=== PATIENT | female | born 1970 | race Caucasian/White ===

== ENCOUNTER 2022-06-07 06:56 | Day surgery (SDC) | payer BC, SELFPAY ==
--- NOTE | 2022-06-07 | CRLHL7_ITS ---
For Patients: As a result of the Cures Act, medical imaging exams and procedure reports are released immediately into your electronic medical record. You may view this report before your referring provider. If you have questions, please contact your health care provider. PLEASE SEE ULTRASOUND-GUIDED LEFT BREAST WIRE LOCALIZATION PERFORMED SAME DAY CRL:edward leon/Dictated by: Enzo Erazo MD @ 06/07/2022 12:27:00 PM (Electronically Signed)
--- NOTE | 2022-06-07 07:10 | SUR.PREOP ---
Patient provided home covid negative results to RN.
[2022-06-07 07:21] VITALS: BMI 31.1
[2022-06-07 07:42] VITALS: BP 142/100; PULSE 89; RESP 16; TEMP 36.9; O2SAT 95
[2022-06-07] MEDS: LACTATED RINGERS 1000 ML 1,000 ML 100 ML IV (07:42)
[2022-06-07] MEDS: SODIUM CHLORIDE 0.9 % (FLUSH) 10 ML SYRINGE IVF (07:42)
--- NOTE | 2022-06-07 08:15 | CRLHL7_ITS ---
For Patients: As a result of the Century Cures Act, medical imaging exams and procedure reports are released immediately into your electronic medical record. You may view this report before your referring provider. If you have questions, please contact your health care provider. BREAST WIRE LOCALIZATION USING ULTRASOUND GUIDANCE CLINICAL HISTORY: Enlarging fibroadenoma. LATERALITY: LEFT breast 10 o`clock 2 cm from the nipple. LESION: Hypoechoic circumscribed biopsy-proven fibroadenoma measuring 1.4 x 1.6 x 2.4 cm. LOCALIZATION WIRE: [place] hookwire. TECHNIQUE: The localization wire was placed using real-time ultrasound guidance with image documentation. Cranial-caudal and medial-lateral digital mammograms were obtained after localization wire placement. CONSENT and TIME OUT: The procedure, risks, and alternatives were explained to the patient and a consent was signed. [place] Protocol was followed including pre-procedure verification that relevant information/documentation was available, reviewed and properly matched to the patient; consent accurate and complete; and equipment and supplies available. Time Out was conducted just prior to starting procedure to verify the four required elements: patient identity, correct side/site marked (if applicable), procedure, relevant images/results properly labeled and displayed (if applicable). PROCEDURE: The skin was prepped with ChloraPrep and 8 cc of 1% lidocaine was injected for local anesthesia. The localization wire was placed within or near the targeted breast lesion using ultrasound guidance. The patient tolerated the procedure well. PROXIMITY OF WIRE TO LESION: Within the lesion. IMPRESSION: Successful breast wire localization. ACR not applicable Dictated by Enzo Erazo MD @ 06/07/2022 12:27:47 PM jj/Dictated by: Enzo Erazo MD @ 06/07/2022 12:27:00 PM (Electronically Signed)
--- NOTE | 2022-06-07 08:39 | W.ANESCHARGE ---
Anesthesia Charges Start Date/Time Anesthesia Start Date: 06/07/22 Anesthesia Start Time: 09:17 Stop Date/Time Anesthesia Stop Date: 06/07/22 Anesthesia Stop Time: 10:35
--- NOTE | 2022-06-07 09:15 | CRLHL7_ITS ---
For Patients: As a result of the Cures Act, medical imaging exams and procedure reports are released immediately into your electronic medical record. You may view this report before your referring provider. If you have questions, please contact your health care provider. LEFT BREAST SPECIMEN RADIOGRAPH CLINICAL HISTORY: Enlarging fibroadenoma. COMPARISON: 06/07/2022. FINDINGS: Two specimen film submitted. The specimen contains the fibroadenoma, biopsy clip and localization wire. IMPRESSION: Specimen contains the fibroadenoma, biopsy clip and localization wire. ACR not applicable Dictated by Enzo Erazo MD @ 06/07/2022 12:28:49 PM jj/Dictated by: Enzo Erazo MD @ 06/07/2022 12:28:00 PM (Electronically Signed)
[2022-06-07] MEDS: BUPIVACAINE 0.25% 30 ML INJECTION (09:50)
--- NOTE | 2022-06-07 09:53 | W.ANESCHARGE ---
Anesthesia Charges Start Date/Time Anesthesia Start Date: 06/07/22 Anesthesia Start Time: 09:17 Stop Date/Time Anesthesia Stop Date: 06/07/22 Anesthesia Stop Time: 10:35
[2022-06-07] MEDS: LIDOCAINE 1 % PF 30 ML INJECTION (10:21)
[2022-06-07 10:33] VITALS: BP 138/92; PULSE 73; RESP 16; TEMP 36.6; O2SAT 99
--- NOTE | 2022-06-07 10:36 | PM.GSPRC ---
Operative Note Date of procedure: 06/07/22 Pre-op diagnosis: Fibroadenoma, left breast Post-op diagnosis: Same Type of Procedure: Wire localization of left breast mass Indications: Patient is a 52-year-old female who presented to clinic with an enlarging mass of the left breast. A biopsy was performed, with characteristics consistent with fibroadenoma. Given the patient's age, as well as enlargement of the mass risks and benefits of excision in the operating room were discussed at length. Risks included but was not limited to: Bleeding, infection, risk of damage to surrounding structures, possible need for additional procedures,and postoperative complications such as pneumonia, pulmonary emboli or WI. All questions and concerns were addressed with the patient agreeing to proceed. Procedure Description: After discussing the risks and benefits of the procedure, the patient signed informed consent.? The operative site was marked and the patient was brought to the operating room and placed on the operating table in supine position.? Care was taken to pad the patient's pressure points.?? The patient was then given sedation by anesthesia.?? The operative site was then prepped and draped in the usual sterile fashion.? A time-out was then performed. Prior to arrival in the operating room, the patient was taken to radiology where a wire was placed to localize the previously placed clip. The patient was then brought to the operating room where anesthesia was induced. Timeout was confirmed. Local anesthesia was infiltrated into a curvilinear incision in the 10:00 o clock position at the location of the tip of the wire. Using electrocautery, the segment of breast tissue containing the tip of the wire was excised. The specimen was painted for orientation. This was then sent for evaluation. Radiology called back and confirmed that the clip, wire and visualized mass were present within the specimen. The wound was irrigated and all irrigant suctioned from the wound. Additional local anesthesia was infiltrated. The wounds were then closed in layers using absorbable suture, and Dermbond was placed over the wounds. An Elbert wrap was applied for compression. The patient was awakened without incident and taken to PACU in stable condition. Sponge, needle and instrument counts were correct x3 at the termination of the case. Findings: Left breast wire localized mass. Anesthesia: MAC and local Surgeon: Samia Canseco MD Estimated blood loss (mL): 10 Additional Specimen Information: Left breast mass Condition: stable Disposition: same day
[2022-06-07 10:45] VITALS: BP 140/82; PULSE 67; RESP 16; O2SAT 99
[2022-06-07 11:00] VITALS: BP 152/93; PULSE 78; RESP 16; O2SAT 100
[2022-06-07 11:15] VITALS: BP 161/96; PULSE 72; RESP 16; O2SAT 100
== END 2022-06-07 11:40 | disposition home or self-care (01) ==
PROVIDERS: PCP Family Medicine; Visit Provider Surgery
PROC: (CPT 19120; principal; 2022-06-07 09:15)
DX: D24.2 Benign neoplasm of left breast (principal)
CPT/HCPCS: 19120; 00400; 19285; 77065; 88307; C1769; G0279; J2001; J2250; J2704; J3010; J3490; J7120

== ENCOUNTER 2024-02-13 20:20 | Emergency (ER) | payer BC, SELFPAY ==
[2024-02-13 20:31] VITALS: BP 180/102; PULSE 102; RESP 20; TEMP 37.2; O2SAT 96; BMI 30.4
--- NOTE | 2024-02-13 20:53 | ED_ITS ---
History of Present Illness General Chief Complaint: Epistaxis/Nosebleed Stated Complaint: bloody nose Time Seen by Provider: 02/13/24 20:48 History of Present Illness HPI Narrative: This 53-year-old female comes in with nose bleed. She was getting her hair colored and bent over into a basin and started bleeding from her nose. She is not on any anticoagulants. She is rather anxious about this bleeding as does not seem to stop. She does not report any lightheadedness or shortness of breath. Related Data Home Medications ?Medication ?Instructions ?Recorded ?Confirmed omega 3-ndl-beb-fish oil 1,000 mg 1 cap PO DAILY 06/05/22 06/05/22 (120 mg-180 mg) capsule (Fish Oil) albuterol 90 mcg/actuation aerosol mcg inhalation 06/07/22 inhaler Previous Rx's ?Medication ?Instructions ?Recorded oxycodone 5 mg tablet 5 mg PO Q6H PRN pain #5 tabs 06/07/22 sennosides 8.6 mg capsule (senna) 8.6 mg PO DAILY PRN constipation 06/07/22 #90 caps Allergies Allergy/AdvReac Type Severity Reaction Status Date / [facility] Allergy Unknown Verified 06/05/22 10:55 Penicillins Allergy Unknown Verified 06/05/22 10:55 Review of Systems Status of ROS: Reports: 10 or more systems reviewed and unremarkable except as noted in History and below Narrative: Constitutional: No fevers, no weight gain or loss. Eyes: No discharge. No vision changes. HENT: No congestion, no sore throat, no ear pain. Nose bleed as described above. Cardiovascular: No chest pain, no palpitations. Respiratory: No shortness of breath, no wheezes, no cough. Gastrointestinal: No abdominal pain, no vomiting, no diarrhea. Genitourinary: No dysuria, no hematuria. Musculoskeletal: Normal range of motion. Skin: No rashes, no pruritis. Neurological: No dizziness, weakness, sensory change, speech change. Endo/Heme/Allergies: No bruising or bleeding. No polydipsia. Pysch: no suicidality, no insomnia. She has anxiety about this nose bleed. All other systems reviewed and are negative. [facility] Medical History (Updated 02/13/24 @ 21:35 by Jonathan Villasenor MD) Acid reflux ?K21.9 - Gastro-esophageal reflux disease without esophagitis (ICD-10) Surgical History (Updated 06/05/22 @ 10:57 by Michelle Lennon RN) Hx of tubal ligation ?Z98.51 - Tubal ligation status (ICD-10) Social History Smoking Status: Former smoker How often do you have a drink containing alcohol: 2-3 times a week How many standard drinks containing alcohol do you have on a typical day: 1 or 2 AUDIT-C Alcohol total score: 3 Non-prescribed substance use: denies use Caffeine: Yes Are you using contraception or practicing any form of control: Yes (tubal and mirena) Exam Narrative: Exam Narrative: Constitutional: Well-developed, well-nourished, no acute distress. HEENT: Normocephalic, atraumatic. Active bleeding from both nostrils apparently. Nasal clamp was applied upon arrival here and she began to have bleeding up through the right nasolacrimal duct into her eye. Neck: Normal range of motion. Nontender. Supple. Heart: Intact distal pulses. Lungs: No chest discomfort. No wheezes, rhonchi, or rales. Abdomen: Nontender. Back: Normal range of motion. Extremities: Normal range of motion. No injury. Skin: Intact. No rash. Warm. No erythema or pallor. Neurologic: No altered sensation. No weakness. Alert and oriented. Psychiatric: No suicidality. No anxiety or depression. No insomnia. Nursing notes and vitals signs are reviewed. Const: Vital Signs, click to edit/add: Vital Signs - 24 hr 02/13/24 20:31 Temperature 98.9 F Pulse Rate [Pulse Oximeter] 102 H Respiratory Rate 20 Blood Pressure [Ri ght Upper Arm] 180/102 H Pulse Oximetry 96 Oxygen Delivery Me thod Room Air Course Vital Signs Vital signs: Initial Vital Signs Temperature 98.9 F 02/13/24 20:31 Temperature Source Temporal Artery Scan 02/13/24 20:31 Pulse Rate 102 H 02/13/24 20:31 Respiratory Rate 20 02/13/24 20:31 Blood Pressure 180/102 H 02/13/24 20:31 Blood Pressure Mean 128 H 02/13/24 20:31 Blood Pressure Position Sitting 02/13/24 20:31 Pulse Oximetry 96 02/13/24 20:31 Oxygen Delivery Method Room Air 02/13/24 20:31 Vital Signs Temperature 98.9 F 02/13/24 20:31 Pulse Rate 102 H 02/13/24 20:31 Respiratory Rate 20 02/13/24 20:31 Blood Pressure 180/102 H 02/13/24 20:31 Pulse Oximetry 96 02/13/24 20:31 Oxygen Delivery Method Room Air 02/13/24 20:31 Temperature 98.9 F 02/13/24 20:31 Pulse Rate 102 H 02/13/24 20:31 Respiratory Rate 20 02/13/24 20:31 Blood Pressure 180/102 H 02/13/24 20:31 Pulse Oximetry 96 02/13/24 20:31 Oxygen Delivery Method Room Air 02/13/24 20:31 Medications Administered Medications: Discontinued Medications Generic Name Dose Route Start Last Admin Trade Name Brenda PRN Reason Stop Dose Admin Lorazepam 1 mg 02/13/24 20:54 02/13/24 20:56 Lorazepam 1 Mg Tablet PO 02/13/24 20:55 1 mg ONCE ONE Administration Oxymetazoline HCl 1 spray 02/13/24 20:52 02/13/24 20:55 Oxymetazoline 0.05% Nasal Yancey NOSTRIL-R 02/13/24 20:53 1 spray ONCE ONE Administration MDM - Epistaxis MDM Narrative Medical decision making narrative: This patient is rather anxious because of nose bleed. It seems that she is bleeding primarily from her right nostril and when the nasal clamp is applied she is now bleeding up through the right nasolacrimal duct. I had her receive a dose of Afrin administered by the nurse and then I placed a rhino rocket into the right nostril. This seem to cause some immediate results for stopping the blood. The patient also received a mg of Ativan orally as she was rather anxious. I recheck it after about 45 minutes. She is doing much better. She has a very small amount of bleeding up into the right nasolacrimal duct. I did talk about a dual-chamber rhino rocket that could be used but she was not interested in this as it was miserable enough to have the 1st 1 placed. She is okay to be discharged home. I did give instructions regarding when to return if worsening and recommended that she have the rhino rocket removed in 2 or 3 days. Discharge Plan Discharge Clinical Impression: Epistaxis Patient Disposition: Home, Self-Care Condition: Improved Additional Instructions: Leave rhino rocket in place and return in 2 or 3 days for removal. Return soon er if worsening symptoms occur. Follow up with MD otherwise as needed. Prescriptions: No Action omega 1-vzi-izu-fish oil [Fish Oil] 1,000 mg (120 mg-180 mg) capsule 1 cap PO DAILY albuterol 90 mcg/actuation aerosol inhalation oxycodone 5 mg tablet 5 mg PO Q6H PRN (Reason: pain) Qty: 5 0RF senna 8.6 mg capsule 8.6 mg PO DAILY PRN (Reason: constipation) Qty: 90 0RF Follow Up/Referrals: Ade Pulido MD [Primary Care Provider] - Stand Alone Forms: [employer] Info Instructions
[2024-02-13] MEDS: OXYMETAZOLINE 0.05% NASAL SPRAY 1 SPRAY NOSTRIL-R (20:55)
[2024-02-13] MEDS: LORazepam 1 MG TABLET PO (20:56)
--- OUTSIDE RECORDS SUMMARY | 2024-02-13 21:41 | XMS_ITS | Clinical Summary ---
Author Organization [facility] Address [place], [place] [address] Care Team Providers Care Textile Conservator Name Role Phone Ade Pulido MD Primary Care Prov ider Allergies Active Allergy Reactions Criticality Noted Date Comments Cefaclor Rash 08/26/2006 Doxycycline Nausea Only 06/01/2022 Penicillins Rash 08/26/2006 Medications Medication Sig Dispensed Refills Start Date End Date Status Uzqeo-8-JTB-EPA-Fish Oil 1,000 mg (120 mg-180 mg) cap Take 1 Capsule (1,000 mg) by mouth. 0 04/03/2021 Active Hospital, Clinic, or Other Facility Administered Medication Ordered Dose Route Frequency Start Date End Date Status levonorgestrel (MIRENA) 20 mcg/24 hours (8 yrs) 52 mg intrauterine device (IUD) 1 DeviceIndications:Encounter for removal and reinsertion of IUD 1 Device IU Q 8 YEARS 09/25/2023 Active Active Problems Problem Noted Date Diagnosed Date Adenomatous colon polyp 05/25/2022 Overview (12/11/2022): Colonoscopy 05/2022 large SSA, repeat in 6 months Colonoscopy 11/2022 hyperplastic polyp, repeat in 3 years Pap smear for cervical cancer screening 03/20/20 22 Overview (03/20/2022): 01/2022 NIL/ HPV negative Plan: Pap/ HPV due 01/2027 Esophageal reflux 08/26/2006 Assessment & Plan (09/20/2011 9:47 AM CDT): Prevacid works well Resolved Problems Problem Noted Date Diagnosed Date Resolved Date Tobacco use disorder 08/26/2006 012 Encounters Date Type Department Care Team Description 12/23/2023 10:05 AM CDT Nurse/Clinic Staff Only [facility] [address] [place] [address] Immunization/Injection 12/23/2023 Travel 12/18/2023 Travel from Last 3 Months Immunizations Name Administration Dates Next Due AMB Influenza, IIV3 (Age >=3 years) Preserve Free (Flu Clinic Only) 01/25/2009 AMB Influenza, IIV3 (Age >=3 years)(Flu Clinic Only) 12/25/2011,01/11/2011 AMB Influenza, IIV4 PF (=>6 mos Flulaval,Fluzone Fluarix)(Flu Clinic Only) 01/09/2019,12/26/2017,12/26/2016, 0 14 COVID-19 VACCINE SPIKEVAX (M ODERNA 50MCG/0.5ML) 12YO+ PFS 12/23/2023,03/19/2023 COVID-19 vaccine (VoltServerBio NTech 30mcg/0.3mL) 12YO+ BIVALENT PF, MDV 01/15/2022 COVID-19 vaccine (Remoov-Bio NTech 30mcg/0.3mL) PF, MDV 03/08/2021 INFLUENZA, IIV3 PF (AGE >= 6 MO) 12/23/2023 Influenza, IIV3 (Age >=3 years) 12/30/2020,01/20,01/05/2010 Influenza, IIV4 12/24/2022,,01/14/2020,12/23/19 16,01/17/2015 Td (Age >=7 Years) 06/27/1998 Tdap 08/06/2019,10/07/2008 Zoster (Shingrix-RZV, recombinant) 09/27/2022, Family History Medical History Relation Name Comments Psychiatric illness Daughter Tyesha anxiety Diabetes Father Unknown Maternal Grandfather Unknown Maternal Grandmother Good Health Mother Cancer-breast Paternal Aunt 1 Cancer-prostate Paternal Aunt 2 Other Paternal Grandfather breathi ng disorder smoker emphesema Good Health Paternal Grandmother Good Health Sister Psychiatric illness Son Thai ADHD Relation Name Status Comments Daughter Tyesha Father Alive Maternal Grandfather Other Maternal Grandmother Other Mother Alive Paternal Aunt 1 Paternal Aunt 2 Paternal Grandfather Paternal Grandmother Alive Sister Son Thai Social History Tobacco Use Types Packs/Day Years Used Date Smoking Tobacco: Former Cigarettes 0.5 24.2 1 987 - 05/28/2010 Smokeless Tobacco: Never Tobacco Cessation:Counseling Given: Not Answered Alcohol Use Standard Drinks/Week Comments Yes 4.2 (1 standard drink = 0.6 oz p ure alcohol) socially PHQ-2 Answer Date Recorded PHQ-2 TOTAL SCORE 0 02/08/2022 Social Connections Answer Date Recorded Do you often feel lonely or isolated from those around you? 0 09/23/2023 Financial Resource Strain Answer Date R ecorded Difficulty of Paying Living Expenses 3 09/23/2023 Difficulty of Paying Living Expenses Not on file 09/23/2023 Food Insecurity Answer Date Recorded Do you worry your food will run out before you are able to buy more? 1 09/23/2023 Transportation Needs Answer Date Record ed Does lack of transportation keep you from medica l appointments? 1 09/23/2023 Does lack of transportation keep you from work, meetings or getting things that you need? 1 09/23/2023 Housing Stability Answer Date Recorded What is your housing situation today? 1 09/23/2023 Sex and Gender Information Value Date Recorded Sex Assigned at Not on file Gender Identity Not on file Sexual Orientation Not on file Obstetrics History Para Term AB IAB SAB Ectopic Multiple Livin g Live Births 2 2 2 2 Date Outcome GA Total Labor Labor/2nd/3rd Weight Sex Type Anes PTL Carmenza A1 A5 Name Clin Term Term Last Filed Vital Signs Vital Sign Reading Time Taken Comments Blood Pressure 157/93 10/15/2023 3:40 PM CDT Pulse 75 10/15/2023 3:40 PM CDT Temperature 37.1 C (98.7 F) 07/04/2021 8:45 AM CDT Respiratory Rate 16 12/07/2022 11:40 AM CDT Oxygen Saturation 99% 10/15/2023 3:20 PM CDT Inhaled Oxygen Concentration - - Weight 95.7 kg (211 lb) 10/15/2023 3:20 PM CDT Height 170.2 cm (5' 7) 02/08/2022 3:46 PM INVENTORY ACCOUNTANT Body Mass Index 33.05 02/08/2022 3:46 PM INVENTORY ACCOUNTANT Plan of Treatment Health Maintenance Due Date Last Done Comments HIV for age 15-65 1987 BMI (ht and wt on same day) for age 18+ 02/08/2023 02/08/2022, 10/02/2018, 03/11/2017, Additional history exists Depression screening for age 12+ 02/09/2023 02/09/2022, 02/08/2022, 03/31/2020, Additional history exists Mammogram for age 45-75 06/11/2024 06/12/19, 06/07/2022, 06/07/2022, Additional history exists Colonoscopy through age 75 12/07/202512/07, 12/07/2022, 05/23/2022, Additional history exists Lipids for age 45-75 02/08/2027 02/08/2022, 04/19/2015, 11/11/2013, Additional history exists Pap test for age 21-65 02/08/2027 , 02/08/2022, 10/02/2018, Additional history exists Tetanus booster 08/05/2029 08/06/2019, 09/22, 06/27/1998 Tdap Completed 08/06/2019, 10/07/2008 Hepatitis C screening for age 18-79 Completed 02/08/2022 Zoster (shingles) series for age 50+ Completed 09/27/2022, 06/20/2022 COVID-19 vaccine series Completed 12/23/19, 03/19/2023, 01/15/2022, Additional history exists Influenza for age 50-64 Completed 12/23/19, 12/24/2022, 01/15/2022, Additional history exists Pneumococcal series for age 6-64 Aged Out No longer eligible based on patient's age to complete this topic Procedures Procedure Name Priority Date/Time Associated Diagnosis Comments XR MAMMO FRANNY BILAT SCREEN Routine 06/12/2023 4:14 PM CDT Encounter for screening mammogram for malignant neoplasm of breast COLONOSCOPY 12/07/2022 9:55 AM CDT ANTI HCV Routine 02/08/2022 4:47 PM INVENTORY ACCOUNTANT Encounter for hepatitis C screening test for low risk patient LIPID PANEL Routine 02/08/2022 4:47 PM INVENTORY ACCOUNTANT Screening for lipoid disorders HPV HIGH RISK Routine 02/08/2022 4:30 PM INVENTORY ACCOUNTANT Pap smear for cervical cancer screening from Last 3 Months or Most Recently Relevant to Health Maintenance Results * XR MAMMO FRANNY BILAT SCREEN (06/12/2023 4:14 PM CDT) Anatomical Region Laterality Modality BREASTS, Breast Left, Breast Right Bilateral Mammography Impressions 06/13/2023 1:45 PM CDT There is no radiographic evidence for malignancy. Recommend annual mammograms. MAMMOGRAM ASSESSMENT: ACR 1 Negative PATIENTS: You will also receive a letter with your examination results in an easy to read format. If you have questions about your results, please contact your referring provider. Narrative 06/13/2023 1:45 PM CDT For Patients: As a result of the Century Cures Act, medical imaging exams and procedure reports are released immediately into your electronic medical record. You may view this report before your referring provider. If you have questions, please contact your health care provider. XR MAMMO FRANNY BILAT SCREEN [[id number]] CLINICAL HISTORY: This is an asymptomatic 53 y.o. patient. INDICATION FOR EXAM: Mammogram Screening. TECHNIQUE: CC & MLO views were obtained. This study was evaluated with the assistance of Computer-Aided Detection. Breast Tomosynthesis was used in interpretation. COMPARISON FILM: Yes 03/13/22 [facility] 02/06/21 [facility] FINDINGS: The breasts are heterogeneously dense, which may obscure small masses. There are no dominant masses, suspicious micro calcifications or areas of architectural distortion. Ade Pulido MD MAMMO * COLONOSCOPY (12/07/2022 9:55 AM CDT) 12/07/2022 9:55 AM CDT Narrative Transcriptions Mor Celis MD - 12/07/2022 11:31 AM CDT Patient Name: Ying Driver Procedure Date: 12/07/2022 Gender: Female Date of : 1970 Admit Type: Outpatient Procedure: Colonoscopy Proceduralist: Mor Celis MD , Tigist David (Nurse), Aniya Samayoa (Nurse) Indications/Pre-Op Diagnosis: High risk colon cancer surveillance:Personal history of sessile serrated colon polyp (10mm or greater in size), Last colonoscopy: May 2022 Medications: Fentanyl 200 micrograms IV, Midazolam 4 mgIV, The level of sedation administered wasmoderate Procedure Description: The patient had risks, benefits and alternatives explained to andgave informed consent. The patient had a stable cardiopulmonary status and judged an adequate candidate for conscious sedation. The endoscope [id number] was passed through the anus andadvanced to the cecum, identified by appendiceal orifice and ileocecal valve.The colonoscopy was performed without difficulty. The patient toleratedthe procedure well. The quality of the bowel preparation was good. The ileocecal valve, appendiceal orifice, and rectum were photographed. Estimated Blood Loss & Specimen: Estimated blood loss: none. Specimen collected - Yes and sent to Laboratory Findings: The perianal and digital rectal examinations were normal. A medium post polypectomy scar was found at the appendiceal orifice. There was residual polyp tissue. The polyp was removed with a cold snare. Resection and retrieval were complete. A 3 mm polyp was found in the rectum. The polyp was sessile. Thepolyp was removed with a cold snare. Area fulfated with soft coagutaltionand snare tip. Resection and retrieval were complete. The colon (entire examined portion) was moderately redundant. The exam was otherwise without abnormality. Impressions/Post-Op Diagnosis: - Post-polypectomy scar at the appendiceal orifice. - One 3 mm polyp in the rectum, removed with a cold snare. Resectedand retrieved. - Redundant colon. - The examination was otherwise normal. Recommendation: - Patient has a contact number available for emergencies. The signsand symptoms of potential delayed complications were discussed with the patient. Return to normal activities tomorrow. Written discharge instructions were provided to the patient. - Resume previous diet. - Continue present medications. - Await pathology results. - Repeat colonoscopy is recommended (possible 1-2 years). The colonoscopy date will be determined after pathology results fromtoday's exam become available for review. Moderate Sedation: A time out was performed before the procedure. Moderate (conscious) sedation was administered by the endoscopy nurse and supervised bythe endoscopist. The following parameters were monitored: oxygensaturation, heart rate, blood pressure, EKG, CO2, respiratory rate, adequacy of pulmonary ventilation and reponse to care. Please refer to the patient's medical record flowsheets and nursing notes for moderate sedation details. Total physician intraservice time was 37 minutes. Mor Celis MD 12/07/2022 11:31:18 AM This report has been signed electronically. 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 All rights reserved. The codes documented in this report are preliminary and upon call center trainer reviewmay be revised to meet current compliance requirements. Scope In: 10:45:33 AM Scope Withdrawal Time 0 hours 13 minutes 30 seconds Scope Out: 11:19:54 AM Mor Celis MD PROCEDURE ORD * ANTI HCV (02/08/2022 4:47 PM INVENTORY ACCOUNTANT) HEPATITIS C ANTIBODY Non-React vandana Non-React vandana 02/10/2022 11:49 PM INVENTORY ACCOUNTANT [facility] Comment:Antibodies to HCV no t detected; does not exclude the possibility of exposure to HCV. Blood BLOOD SPECIMEN / Unknown Venipuncture / Unknown 02/08/2022 4:47 PM INVENTORY ACCOUNTANT 02/08/2022 4:49 PM INVENTORY ACCOUNTANT Ade Pulido MD SEND OUTS [facility] [address] [place] [address], * (ABNORMAL) LIPID PANEL (02/08/2022 4:47 PM INVENTORY ACCOUNTANT) CHOLESTEROL,TOTAL 248(H) 100 - 199 mg/dL 02/10/2022 11:32 PM INVENTORY ACCOUNTANT [facility] TRIGLYCERIDES 157(H) <150 mg/dL 02/10/2022 11:32 PM INVENTORY ACCOUNTANT [facility] HDL CHOLESTEROL 45 >40 mg/dL 11:32 PM INVENTORY ACCOUNTANT [facility] NON-HDL CHOLESTEROL 203(H) <145 mg/dl 02/10/2022 11:32 PM INVENTORY ACCOUNTANT [facility] CHOL/HDL RATIO 5.51(H) <4.50 02/10/2022 11:32 PM INVENTORY ACCOUNTANT [facility] LDL CHOLESTEROL 172(H) <=130 mg/dL 02/10/2022 11:32 PM INVENTORY ACCOUNTANT [facility] VLDL CHOLESTEROL 31(H) <=30 mg/dL 02/10/2022 11:32 PM INVENTORY ACCOUNTANT [facility] PROVIDER ORDERED STATUS RANDOM 02/10/2022 11:32 PM INVENTORY ACCOUNTANT [facility] Blood BLOOD SPECIMEN / Unknown Venipuncture / Unknown 02/08/2022 4:47 PM INVENTORY ACCOUNTANT 02/08/2022 4:49 PM INVENTORY ACCOUNTANT Ade Pulido MD CHEMISTRY [facility] [address] [place] [address], * HPV HIGH RISK (02/08/2022 4:30 PM INVENTORY ACCOUNTANT) TYPE 16 Negative Negative 02/16/2022 4:48 PM INVENTORY ACCOUNTANT [facility] TYPE 18 Negative Negative 02/16/2022 4:48 PM INVENTORY ACCOUNTANT [facility] OTHER HIGH RISK TYPES Negative Negative 02/16/2022 4:48 PM INVENTORY ACCOUNTANT [facility] Other (Cervical/Vagina l) Non-Blood / Unknown 02/08/2022 4:30 PM INVENTORY ACCOUNTANT 02/12/2022 1:36 PM INVENTORY ACCOUNTANT Narrative [facility] - 02/16/2022 4:48 PM INVENTORY ACCOUNTANT HPV types 16, 18, 31, 33, 35, 39, 45, 51, 52, 56, 58, 59, 66 and 68 DNA were undetectable or below the pre-set threshold. Methodology: Noemy Jonathan 4800 HPV Test Ade Pulido MD MICROBIOLO GY [facility] [address] [place] [address], from Last 3 Months or Most Recently Relevant to Health Maintenance Care Teams Textile Conservator Relationship Specialty Start Date End Date Ade Pulido MD [address] [place] [address] PCP - General 03/28/06
[2024-02-13 21:42] VITALS: BP 143/90; PULSE 80; RESP 18; TEMP 36.7
== END 2024-02-13 21:46 | disposition home or self-care (01) ==
LOC: ED 21:39
PROVIDERS: Emergency Provider Emergency Medicine Emergency Medical Services; PCP Family Medicine
DX: R04.0 Epistaxis (principal)
CPT/HCPCS: 30901; 99283; 99284; A9270

== ENCOUNTER 2024-02-15 08:33 | Emergency (ER) | payer BC, SELFPAY ==
[2024-02-15 08:41] VITALS: BP 143/102; PULSE 98; RESP 18; TEMP 36.4; O2SAT 98; BMI 30.4
--- NOTE | 2024-02-15 09:08 | ED_ITS ---
HPI - General Adult General Chief complaint: Ear/Nose/Throat Problem Stated complaint: need rhino rocket removed Time Seen by Provider: 02/15/24 08:57 History of Present Illness HPI narrative: Patient is a 53-year-old woman with no history of clotting disorder or anticoagulation who was seen 2 days ago for epistaxis on the right. She had a pack placed and is in today for pack removal. The bleeding has stopped she still has some drainage down the back her throat which is slightly bloody. No other problems have been noted she has had no nausea no vomiting no fevers no chills no night sweats no cough no shortness of breath. She has chronic dry eyes but no signs of chronic sinusitis or rhinitis. Related Data Home Medications ?Medication ?Instructions ?Recorded ?Confirmed omega 0-qze-lyk-fish oil 1,000 mg 1 cap PO DAILY 06/05/22 06/05/22 (120 mg-180 mg) capsule (Fish Oil) albuterol 90 mcg/actuation aerosol mcg inhalation 06/07/22 inhaler Allergies Allergy/AdvReac Type Severity Reaction Status Date / Time cefaclor (From Ceclor) Allergy Unknown Verified 06/05/22 10:55 Penicillins Allergy Unknown Verified 06/05/22 10:55 Review of Systems Status of ROS: Reports: 10 or more systems reviewed and unremarkable except as noted in History and below PFSH PFS Medical History Acid reflux ?K21.9 - Gastro-esophageal reflux disease without esophagitis (ICD-10) Surgical History Hx of tubal ligation ?Z98.51 - Tubal ligation status (ICD-10) Social History Smoking Status: Former smoker Do you use any of these nicotine containing products: None Second hand tobacco smoke exposure: No How often do you have a drink containing alcohol: monthly or less How many standard drinks containing alcohol do you have on a typical day: 1 or 2 AUDIT-C Alcohol total score: 1 Non-prescribed substance use: denies use Caffeine: Yes Are you using contraception or practicing any form of control: Yes (tubal and mirena) service: No Exam Narrative: Exam Narrative: EXAM GENERAL: Patient appears comfortable and well. EYES: No scleral icterus. ENT: Tympanic membranes and oropharynx normal. Right nostril shows some coagulated blood after packing removed no other findings noted. THYROID: no thyroid nodules or thyromegaly. LYMPH: No supraclavicular or cervical lymphadenopathy. SKIN: Visible skin seen during exam normal or with benign process only. EXT: No dependent lower extremity pedal edema. HEART: Regular rate and rhythm with no murmurs, rubs, or gallops. LUNGS: Clear to auscultation bilaterally with no crackles or wheezes. ABD: Soft, non tender, non distended. PSYCH: Good eye contact, speech is not pressured. Const: Vital Signs, click to edit/add: Vital Signs - 24 hr 02/15/24 08:41 Temperature 97.5 F L Pulse Rate [Pulse Oximeter] 98 Respiratory Rate 18 Blood Pressure [Ri ght Upper Arm] 143/102 H Pulse Oximetry 98 Oxygen Delivery Me thod Room Air Course Course ED Course: Nasal packing removed. Vital Signs Vital signs: Initial Vital Signs Temperature 97.5 F L 02/15/24 08:41 Temperature Source Temporal Artery Scan 02/15/24 08:41 Pulse Rate 98 02/15/24 08:41 Respiratory Rate 18 02/15/24 08:41 Blood Pressure 143/102 H 02/15/24 08:41 Blood Pressure Mean 115 H 02/15/24 08:41 Blood Pressure Position Sitting 02/15/24 08:41 Pulse Oximetry 98 02/15/24 08:41 Oxygen Delivery Method Room Air 02/15/24 08:41 Vital Signs Temperature 97.5 F L 02/15/24 08:41 Pulse Rate 98 02/15/24 08:41 Respiratory Rate 18 02/15/24 08:41 Blood Pressure 143/102 H 02/15/24 08:41 Pulse Oximetry 98 02/15/24 08:41 Oxygen Delivery Method Room Air 02/15/24 08:41 Temperature 97.5 F L 02/15/24 08:41 Pulse Rate 98 02/15/24 08:41 Respiratory Rate 18 02/15/24 08:41 Blood Pressure 143/102 H 02/15/24 08:41 Pulse Oximetry 98 02/15/24 08:41 Oxygen Delivery Method Room Air 02/15/24 08:41 Medical Decision Making MDM Narrative Medical decision making narrative: Patient is a 53-year-old woman who had epistaxis for the 1st time 2 days ago. She is in today for packing removal. After explaining the risks and benefits I did remove the packing successfully. She is observed for a short time no further epistaxis has occurred. I did recommend Flonase as well as follow-up with ear nose and throat. Discharge Plan Discharge Clinical Impression: Epistaxis Patient Disposition: Home, Self-Care Condition: Stable Instructions: Nosebleed (ED) Additional Instructions: Flonase 1 spray each nostril daily Follow-up with ENT in the next several weeks. Activity Level: No Restrictions and Other Discharge Diet: Regular Prescriptions: No Action omega 2-mos-ltp-fish oil [Fish Oil] 1,000 mg (120 mg-180 mg) capsule 1 cap PO DAILY albuterol 90 mcg/actuation aerosol inhalation Follow Up/Referrals: Ade Pulido MD [Primary Care Provider] - Stand Alone Forms: [employer] Info Instructions
--- OUTSIDE RECORDS SUMMARY | 2024-02-15 09:27 | XMS_ITS | Clinical Summary ---
Author Organization [employer] [facility] Address [place], [place] [address] Care Team Providers Care Envelope Folding Machine Operator Name Role Phone Ade Pulido MD Primary Care Prov ider Allergies Active Allergy Reactions Criticality Noted Date Comments Cefaclor Rash 08/26/2006 Doxycycline Nausea Only 06/01/2022 Penicillins Rash 08/26/2006 Medications Medication Sig Dispensed Refills Start Date End Date Status Okxli-3-CJT-EPA-Fish Oil 1,000 mg (120 mg-180 mg) cap [...] 12/23/2023 10:05 AM CDT Nurse/Clinic Staff Only [facility] [address] [place] [address] Immunization/Injection 12/23/2023 Travel 12/18/2023 Travel from Last 3 Months Immunizations Name Administration Dates Next Due AMB Influenza, IIV3 (Age >=3 years) Preserve Free (Flu Clinic Only) 01/25/2009 AMB Influenza, IIV3 (Age >=3 years)(Flu Clinic Only) 12/25/2011,01/11/2011 AMB Influenza, IIV4 PF (=>6 mos Flulaval,Fluzone Fluarix)(Flu Clinic Only) 01/09/2019,12/26/2017,12/26/2016, 0 14 COVID-19 VACCINE SPIKEVAX (M ODERNA 50MCG/0.5ML) 12YO+ PFS 12/23/2023,03/19/2023 COVID-19 vaccine (ZapperBio NTech 30mcg/0.3mL) 12YO+ BIVALENT PF, MDV 01/15/2022 COVID-19 vaccine (Eversnap-Bio NTech 30mcg/0.3mL) PF, MDV 03/08/2021 INFLUENZA, IIV3 [...] 170.2 cm (5' 7) 02/08/2022 3:46 PM TITLE I PARAPROFESSIONAL Body Mass Index 33.05 02/08/2022 3:46 PM TITLE I PARAPROFESSIONAL Plan of Treatment Health Maintenance Due Date [...] CDT ANTI HCV Routine 02/08/2022 4:47 PM TITLE I PARAPROFESSIONAL Encounter for hepatitis C screening test for low risk patient LIPID PANEL Routine 02/08/2022 4:47 PM TITLE I PARAPROFESSIONAL Screening for lipoid disorders HPV HIGH RISK Routine 02/08/2022 4:30 PM TITLE I PARAPROFESSIONAL Pap smear for cervical cancer screening from [...] care provider. XR MAMMO FRANNY BILAT SCREEN [[id number]] CLINICAL HISTORY: This is an asymptomatic 53 [...] adequate candidate for conscious sedation. 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 All rights reserved. The codes documented in this report are preliminary and upon software product specialist reviewmay be revised to meet current compliance requirements. Scope In: 10:45:33 AM Scope Withdrawal Time 0 hours 13 minutes 30 seconds Scope Out: 11:19:54 AM Mor Celis MD PROCEDURE ORD * ANTI HCV (02/08/2022 4:47 PM TITLE I PARAPROFESSIONAL) HEPATITIS C ANTIBODY Non-React vandana Non-React vandana 02/10/2022 11:49 PM TITLE I PARAPROFESSIONAL [facility] Comment:Antibodies to HCV no t detected; does not exclude the possibility of exposure to HCV. Blood BLOOD SPECIMEN / Unknown Venipuncture / Unknown 02/08/2022 4:47 PM TITLE I PARAPROFESSIONAL 02/08/2022 4:49 PM TITLE I PARAPROFESSIONAL Ade Pulido MD SEND OUTS [facility] [address] [place] [address], * (ABNORMAL) LIPID PANEL (02/08/2022 4:47 PM TITLE I PARAPROFESSIONAL) CHOLESTEROL,TOTAL 248(H) 100 - 199 mg/dL 02/10/2022 11:32 PM TITLE I PARAPROFESSIONAL [facility] TRIGLYCERIDES 157(H) <150 mg/dL 02/10/2022 11:32 PM TITLE I PARAPROFESSIONAL [facility] HDL CHOLESTEROL 45 >40 mg/dL 11:32 PM TITLE I PARAPROFESSIONAL [facility] NON-HDL CHOLESTEROL 203(H) <145 mg/dl 02/10/2022 11:32 PM TITLE I PARAPROFESSIONAL [facility] CHOL/HDL RATIO 5.51(H) <4.50 02/10/2022 11:32 PM TITLE I PARAPROFESSIONAL [facility] LDL CHOLESTEROL 172(H) <=130 mg/dL 02/10/2022 11:32 PM TITLE I PARAPROFESSIONAL [facility] VLDL CHOLESTEROL 31(H) <=30 mg/dL 02/10/2022 11:32 PM TITLE I PARAPROFESSIONAL [facility] PROVIDER ORDERED STATUS RANDOM 02/10/2022 11:32 PM TITLE I PARAPROFESSIONAL [facility] Blood BLOOD SPECIMEN / Unknown Venipuncture / Unknown 02/08/2022 4:47 PM TITLE I PARAPROFESSIONAL 02/08/2022 4:49 PM TITLE I PARAPROFESSIONAL Ade Pulido MD CHEMISTRY [facility] [address] [place] [address], * HPV HIGH RISK (02/08/2022 4:30 PM TITLE I PARAPROFESSIONAL) TYPE 16 Negative Negative 02/16/2022 4:48 PM TITLE I PARAPROFESSIONAL [facility] TYPE 18 Negative Negative 02/16/2022 4:48 PM TITLE I PARAPROFESSIONAL [facility] OTHER HIGH RISK TYPES Negative Negative 02/16/2022 4:48 PM TITLE I PARAPROFESSIONAL [facility] Other (Cervical/Vagina l) Non-Blood / Unknown 02/08/2022 4:30 PM TITLE I PARAPROFESSIONAL 02/12/2022 1:36 PM TITLE I PARAPROFESSIONAL Narrative [facility] - 02/16/2022 4:48 PM TITLE I PARAPROFESSIONAL HPV types 16, 18, 31, 33, 35, 39, 45, 51, 52, 56, 58, 59, 66 and 68 DNA were undetectable or below the pre-set threshold. Methodology: Noemy Jonathan 4800 HPV Test Ade Pulido MD MICROBIOLO GY [facility] [address] [place] [address], from Last 3 Months or Most Recently Relevant to Health Maintenance Care Teams Envelope Folding Machine Operator Relationship Specialty Start Date End Date Ade Pulido MD [address] [place] [address] PCP - General 03/28/06
== END 2024-02-15 09:27 | disposition home or self-care (01) ==
LOC: ED 09:26
PROVIDERS: Emergency Provider Internal Medicine; PCP Family Medicine
DX: R04.0 Epistaxis (principal)
CPT/HCPCS: 30901; 99283

== ENCOUNTER 2024-02-16 08:43 | Emergency (ER) | payer BC, SELFPAY ==
[2024-02-16 08:47] VITALS: BP 146/94; PULSE 90; RESP 18; TEMP 36.7; O2SAT 96; BMI 30.4
--- NOTE | 2024-02-16 09:04 | ED.EPISTAXIS ---
History of Present Illness General Time Seen by Provider: 08:55 Date Seen: 02/16/24 Chief Complaint: Epistaxis/Nosebleed Stated Complaint: Nose bleed Time Seen by Provider: 02/16/24 08:55 Source: patient, family, RN notes reviewed and old records reviewed Mode of arrival: ambulatory Limitations: no limitations History of Present Illness HPI Narrative: This 53-year-old female is coming in with recurrent right nose bleed. She had an unprovoked nose bleed on February 12, did have a nasal packing put in. She returned yesterday to the ER to have the packing removed. This morning she was just washing her hair again, no trauma, right naris started bleeding again. She put pressure on immediately. She did spit up 1 clot. She had been advised yesterday to start Flonase for moisturization. Did review with her that I did actually not recommend starting Flonase with active issues with nasal bleed. The steroid in this can thin the membranes and increase the risk of nose bleeds. I do agree with the moisturization theory but would avoid the steroid in Flonase. Patient does have baseline dry eyes and states she has humidification going throughout the house. Did recommend a small amount of Vaseline into each anterior nares at bedtime. She is aware that she needs to follow up with ENT and was going to call our clinic on Saturday to get that scheduled. She is not feeling any significant drainage down the back of her throat right now, has been holding steady pressure over her right nostril. She admits that she was quite nervous last time, is feeling anxious now. With the 1st nose bleed she actually got reflux of blood up the nasal lacrimal duct and was coming out her right eye. Location: Yes right nares Related Data Home Medications ?Medication ?Instructions ?Recorded ?Confirmed omega 0-jsr-xwd-fish oil 1,000 mg 1 cap PO DAILY 06/05/22 02/16/24 (120 mg-180 mg) capsule (Fish Oil) Allergies Allergy/AdvReac Type Severity Reaction Status Date / Time cefaclor (From [facility]) Allergy Unknown Verified 02/16/24 08:55 Penicillins Allergy Unknown Verified 02/16/24 08:55 Review of Systems Narrative: As per HPI. PFSH PFS Medical History Acid reflux ?K21.9 - Gastro-esophageal reflux disease without esophagitis (ICD-10) Surgical History Hx of tubal ligation ?Z98.51 - Tubal ligation status (ICD-10) Social History Smoking Status: Former smoker Do you use any of these nicotine containing products: None Second hand tobacco smoke exposure: No How often do you have a drink containing alcohol: monthly or less How many standard drinks containing alcohol do you have on a typical day: 1 or 2 AUDIT-C Alcohol total score: 1 Non-prescribed substance use: denies use Caffeine: Yes Are you using contraception or practicing any form of control: Yes (tubal and mirena) service: No Exam Const: Vital Signs, click to edit/add: Vital Signs - 24 hr 02/16/24 08:47 Temperature 98.1 F Pulse Rate [Pulse Oximeter] 90 Respiratory Rate 18 Blood Pressure [Le ft Upper Arm] 146/94 H Pulse Oximetry 96 Oxygen Delivery Me thod Room Air Ying is a very pleasant 53-year-old female that is alert, interactive, no apparent distress. I have her take the pressure off her right nostril while I am in with her. She dabs just a little bit of blood a couple of times when I am in there. Face is atraumatic, inspection of her nares with the ample thick a adhikari from the head set with the eyeglasses reveals no definite area of bleeding, cannot see any punctate erythematous area along the septum, see no active bleeding. She states the same thing happened with her initial presentation. TMs canals look normal, oropharynx shows a little residual blood down the back of her pharynx but I do not see any active trickling. Documenting provider has reviewed patient's vital signs: yes Course Course ED Course: Patient and I discussed with her further observation without packing verses replacing the packing. She did rebleed at home, is seemingly settled at this time. I have no idea if she will bleed again, she certainly can try to observe, they do live in town. She is quite anxious, they are wondering if we can replace the packing but if she could have a dose of Ativan 1st. This helped her significantly last time, took it orally. I will give her 1 mg oral Ativan and plan to replace packing. Reevaluation(s) Time of Reevaluation #1: 09:49 Reevaluation #1: Patient has had no significant bleeding here, did recheck her oropharynx and it is clear, no evidence of any blood. She is just had a little drip when touching the Kleenex to her nose. She ultimately decided to have the packing replaced. Did use a 5.5 cm rapid rhino. This actually fit in snugly, did not put any air in the chamber at this point. There was no bleeding. Instructed patient and her on how to place air into the chamber should she start bleeding around this. They will do 1 mL at a time up to a total volume of 5 mL. Vital Signs Vital signs: Initial Vital Signs Temperature 98.1 F 02/16/24 08:47 Temperature Source Temporal Artery Scan 02/16/24 08:47 Pulse Rate 90 02/16/24 08:47 Respiratory Rate 18 02/16/24 08:47 Blood Pressure 146/94 H 02/16/24 08:47 Blood Pressure Mean 111 H 02/16/24 08:47 Blood Pressure Position Sitting 02/16/24 08:47 Pulse Oximetry 96 02/16/24 08:47 Oxygen Delivery Method Room Air 02/16/24 08:47 Vital Signs Temperature 98.1 F 02/16/24 08:47 Pulse Rate 90 02/16/24 08:47 Respiratory Rate 18 02/16/24 08:47 Blood Pressure 146/94 H 02/16/24 08:47 Pulse Oximetry 96 02/16/24 08:47 Oxygen Delivery Method Room Air 02/16/24 08:47 Temperature 98.1 F 02/16/24 08:47 Pulse Rate 90 02/16/24 08:47 Respiratory Rate 18 02/16/24 08:47 Blood Pressure 146/94 H 02/16/24 08:47 Pulse Oximetry 96 02/16/24 08:47 Oxygen Delivery Method Room Air 02/16/24 08:47 Medications Administered Medications: Discontinued Medications Generic Name Dose Route Start Last Admin Trade Name Freq PRN Reason Stop Dose Admin Lorazepam 1 mg 02/16/24 09:04 02/16/24 09:09 Lorazepam 0.5 Mg Tablet PO 02/16/24 09:05 1 mg ONCE ONE Administration Lorazepam 1 mg 02/16/24 09:30 02/16/24 09:17 Lorazepam 1 Mg Tablet PO 02/16/24 09:31 Not Given ONCE ONE Discharge Plan Discharge Clinical Impression: Epistaxis Patient Disposition: Home, Self-Care Condition: Stable Instructions: Nosebleed (ED) Additional Instructions: Leave packing in place, should be removed by Saturday or Saturday. Please call the [facility] to get scheduled with Dr. Ramirez in ENT, please let them know that we need you seen this week to have your packing removed. If you should start bleeding on the right side with the packing in place, can place 1 mL of air into the chamber at a time, wait 3-5 minutes between each placement of air. The chamber can take a total volume of 5 mL. If you continue to bleed after this volume is reached, need to return to the ER. Activity Level: No strenuous activity Prescriptions: No Action omega 5-wgs-mvb-fish oil [Fish Oil] 1,000 mg (120 mg-180 mg) capsule 1 cap PO DAILY Follow Up/Referrals: Ade Pulido MD [Primary Care Provider] - Stand Alone Forms: [employer] Info Instructions
[2024-02-16] MEDS: LORazepam 0.5 MG TABLET 1 MG PO (09:09)
--- OUTSIDE RECORDS SUMMARY | 2024-02-16 09:21 | XMS_ITS | Clinical Summary ---
Author Organization [employer] [facility] Address [place], [place] [address] Care Team Providers Care Staff Counsel Name Role Phone Ade Pulido MD Primary Care Prov ider Allergies Active Allergy Reactions Criticality Noted Date Comments Cefaclor Rash 08/26/2006 Doxycycline Nausea Only 06/01/2022 Penicillins Rash 08/26/2006 Medications Medication Sig Dispensed Refills Start Date End Date Status Qbagl-2-TWG-EPA-Fish Oil 1,000 mg (120 mg-180 mg) cap [...] 12/23/2023 10:05 AM CDT Nurse/Clinic Staff Only [facility] [address] [place] [address] Immunization/Injection 12/23/2023 Travel 12/18/2023 Travel from Last 3 Months Immunizations Name Administration Dates Next Due AMB Influenza, IIV3 (Age >=3 years) Preserve Free (Flu Clinic Only) 01/25/2009 AMB Influenza, IIV3 (Age >=3 years)(Flu Clinic Only) 12/25/2011,01/11/2011 AMB Influenza, IIV4 PF (=>6 mos Flulaval,Fluzone Fluarix)(Flu Clinic Only) 01/09/2019,12/26/2017,12/26/2016, 0 14 COVID-19 VACCINE SPIKEVAX (M ODERNA 50MCG/0.5ML) 12YO+ PFS 12/23/2023,03/19/2023 COVID-19 vaccine (Tie SocietyBio NTech 30mcg/0.3mL) 12YO+ BIVALENT PF, MDV 01/15/2022 COVID-19 vaccine (People[employer]-Bio NTech 30mcg/0.3mL) PF, MDV 03/08/2021 INFLUENZA, IIV3 [...] 170.2 cm (5' 7) 02/08/2022 3:46 PM AGRICULTURE LABORATORY TECHNICIAN Body Mass Index 33.05 02/08/2022 3:46 PM AGRICULTURE LABORATORY TECHNICIAN Plan of Treatment Health Maintenance Due Date [...] CDT ANTI HCV Routine 02/08/2022 4:47 PM AGRICULTURE LABORATORY TECHNICIAN Encounter for hepatitis C screening test for low risk patient LIPID PANEL Routine 02/08/2022 4:47 PM AGRICULTURE LABORATORY TECHNICIAN Screening for lipoid disorders HPV HIGH RISK Routine 02/08/2022 4:30 PM AGRICULTURE LABORATORY TECHNICIAN Pap smear for cervical cancer screening from [...] care provider. XR MAMMO FRANNY BILAT SCREEN [[id number]] CLINICAL HISTORY: This is an asymptomatic 53 [...] adequate candidate for conscious sedation. 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 All rights reserved. The codes documented in this report are preliminary and upon avionics supervisor reviewmay be revised to meet current compliance requirements. Scope In: 10:45:33 AM Scope Withdrawal Time 0 hours 13 minutes 30 seconds Scope Out: 11:19:54 AM Mor Celis MD PROCEDURE ORD * ANTI HCV (02/08/2022 4:47 PM AGRICULTURE LABORATORY TECHNICIAN) HEPATITIS C ANTIBODY Non-React vandana Non-React vandana 02/10/2022 11:49 PM AGRICULTURE LABORATORY TECHNICIAN [facility] Comment:Antibodies to HCV no t detected; does not exclude the possibility of exposure to HCV. Blood BLOOD SPECIMEN / Unknown Venipuncture / Unknown 02/08/2022 4:47 PM AGRICULTURE LABORATORY TECHNICIAN 02/08/2022 4:49 PM AGRICULTURE LABORATORY TECHNICIAN Ade Pulido MD SEND OUTS [facility] [address] [place] [address], * (ABNORMAL) LIPID PANEL (02/08/2022 4:47 PM AGRICULTURE LABORATORY TECHNICIAN) CHOLESTEROL,TOTAL 248(H) 100 - 199 mg/dL 02/10/2022 11:32 PM AGRICULTURE LABORATORY TECHNICIAN [facility] TRIGLYCERIDES 157(H) <150 mg/dL 02/10/2022 11:32 PM AGRICULTURE LABORATORY TECHNICIAN [facility] HDL CHOLESTEROL 45 >40 mg/dL 11:32 PM AGRICULTURE LABORATORY TECHNICIAN [facility] NON-HDL CHOLESTEROL 203(H) <145 mg/dl 02/10/2022 11:32 PM AGRICULTURE LABORATORY TECHNICIAN [facility] CHOL/HDL RATIO 5.51(H) <4.50 02/10/2022 11:32 PM AGRICULTURE LABORATORY TECHNICIAN [facility] LDL CHOLESTEROL 172(H) <=130 mg/dL 02/10/2022 11:32 PM AGRICULTURE LABORATORY TECHNICIAN [facility] VLDL CHOLESTEROL 31(H) <=30 mg/dL 02/10/2022 11:32 PM AGRICULTURE LABORATORY TECHNICIAN [facility] PROVIDER ORDERED STATUS RANDOM 02/10/2022 11:32 PM AGRICULTURE LABORATORY TECHNICIAN [facility] Blood BLOOD SPECIMEN / Unknown Venipuncture / Unknown 02/08/2022 4:47 PM AGRICULTURE LABORATORY TECHNICIAN 02/08/2022 4:49 PM AGRICULTURE LABORATORY TECHNICIAN Ade Pulido MD CHEMISTRY [facility] [address] [place] [address], * HPV HIGH RISK (02/08/2022 4:30 PM AGRICULTURE LABORATORY TECHNICIAN) TYPE 16 Negative Negative 02/16/2022 4:48 PM AGRICULTURE LABORATORY TECHNICIAN [facility] TYPE 18 Negative Negative 02/16/2022 4:48 PM AGRICULTURE LABORATORY TECHNICIAN [facility] OTHER HIGH RISK TYPES Negative Negative 02/16/2022 4:48 PM AGRICULTURE LABORATORY TECHNICIAN [facility] Other (Cervical/Vagina l) Non-Blood / Unknown 02/08/2022 4:30 PM AGRICULTURE LABORATORY TECHNICIAN 02/12/2022 1:36 PM AGRICULTURE LABORATORY TECHNICIAN Narrative [facility] - 02/16/2022 4:48 PM AGRICULTURE LABORATORY TECHNICIAN HPV types 16, 18, 31, 33, 35, 39, 45, 51, 52, 56, 58, 59, 66 and 68 DNA were undetectable or below the pre-set threshold. Methodology: Noemy Jonathan 4800 HPV Test Ade Pulido MD MICROBIOLO GY [facility] [address] [place] [address], from Last 3 Months or Most Recently Relevant to Health Maintenance Care Teams Staff Counsel Relationship Specialty Start Date End Date Ade Pulido MD [address] [place] [address] PCP - General 03/28/06
== END 2024-02-16 09:56 | disposition home or self-care (01) ==
PROVIDERS: Emergency Provider Family Medicine; PCP Family Medicine
DX: R04.0 Epistaxis (principal)
CPT/HCPCS: 30901; 99283; A9270

== ENCOUNTER 2025-02-23 07:40 | Day surgery (SDC) | payer OTHER, SELFPAY ==
[2025-02-23] VITALS (13 sets, daily range): BP systolic 112–146; BP diastolic 74–92; PULSE 69–93; RESP 14–16; TEMP 36.3–36.8; O2SAT 95–96; BMI 31.4
[2025-02-23 08:04] LABS: Ur HCG Qualitative* Negative (Negative)
[2025-02-23] MEDS: SODIUM CHLORIDE 0.9 % (FLUSH) 10 ML SYRINGE IVF (08:15)
[2025-02-23] MEDS: LACTATED RINGERS 1000 ML 1,000 ML 100 ML IV ×2 (08:15→10:43)
[2025-02-23] MEDS: BUPIVACAINE 0.25% 30 ML INJECTION (11:28)
--- NOTE | 2025-02-23 11:35 | W.PM.GYNPROC ---
Procedure Note Date of procedure: 02/23/25 [address] [facility] bill your pro fee for this procedure?: Yes Pre-op diagnosis: 1. >10 cm persistent left ovarian cyst 2. Abnormal uterine bleeding with Mirena IUD 3. History of prior tubal ligation Post-op diagnosis: 1. >10 cm persistent left ovarian cyst 2. Abnormal uterine bleeding with Mirena IUD 3. Small simple right ovarian cyst 4. History of prior tubal ligation Procedure: 1. Hysteroscopy, D&C 2. Replacement of Mirena IUD 3. Laparoscopy with left salpingo oophorectomy, right-ovarian cystectomy, and right distal salpingectomy Anesthesia: GETA Complications: None. Surgeon: Yadira Steel MD Animal Humane Agent Supervisor: Donya Yan Estimated blood loss (mL): 10 Urine Output (mL): 800 Pathology: specimen obtained, sent to pathology (1. Endometrial curettings and intrauterine synechiae, 2. Left tube and ovary containing two large cysts, 3. Right ovarian cyst wall, 4. Right distal tube. Cyst fluid for cytology.) Condition: stable Disposition: same day Findings: Enlarged left ovary containing two large cysts, total diameter 10-15 cm. Cysts contained a total of 830 mL clear fluid. Small simple right ovarian cyst, most likely corpus luteum cyst. Normal-appearing right distal fallopian tube. Evidence of prior tubal ligation. Normal appearing uterus. Normal-appearing appendix. On hysteroscopy, endometrial cavity was normal in appearance. The IUD and the IUD strings were located within the endometrial cavity, with the end of the strings in the internal cervical os. 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 Procedure Description: After obtaining informed consent, the patient was taken to the operating room where general anesthesia was obtained without difficulty. She was prepared and draped in the normal sterile fashion, in the low dorsal lithotomy position. A Curran catheter was sterilely inserted into the bladder and left to gravity drainage. An open-sided bivalve speculum was introduced into the vagina and the cervix visualized. The IUD strings were non visualized. The anterior lip of the cervix was grasped with a single-tooth tenaculum for traction. The uterus was gently sounded. The uterus was severely anteflexed, presumably due to the large ovarian cyst that was filling the posterior cul-de-sac. Sound length was initially thought to be 8 cm. The cervix was gently dilated to a #6 Hegar dilator. Sound length was remeasured and found to be 10 cm. A hysteroscope was then advanced under direct visualization through the cervix into the uterine cavity. Sterile normal saline was used as distending medium. The IUD was visualized within the endometrial cavity in the proper position, strings were retracted in to the cervix and uterine cavity. A hysteroscopic graspers was used to grab the IUD strings, and the IUD was removed with the hysteroscope. The hysteroscope was advanced again into the uterus. The uterine cavity was carefully inspected with the findings noted above. Pictures were taken for documentation purposes. The TruClear morcellator was inserted through the operating channel in the hysteroscope. The morcellator was used to remove the intrauterine synechiae and some adjacent endometrium. The hysteroscope was then removed. The endometrial lining was then sharply curetted and a scant obtained. A [employer] uterine manipulator was placed. The tenaculum was removed. The speculum was removed. I then changed gown and gloves and my attention was turned to the abdomen. The superior aspect of the umbilical fold was injected with 0.25% Marcaine plain. A 10 mm vertical incision was then made within the umbilical fold using a scalpel. The subcutaneous tissues were bluntly dissected with a Tatiana clamp to the fascia. The fascia was grasped with 2 small Karl clamps and elevated. The fascia was incised sharply with Leslie scissors. The underlying peritoneum was identified, grasped with two Tatiana clamps, entered sharply with Metzenbaum scissors. Entry to the abdominal cavity was confirmed visually and digitally. A 10 mm laparoscoped was then placed under direct visualization into the abdomen and fixed in place by inflating the attached balloon. Pneumoperitoneum was obtained by insufflation of CO2 gas. The 10 mm laparoscope was used then to carefully inspect the abdomen and pelvis with findings noted above. Pictures were taken for documentation purposes. The patient was placed in Trendelenburg positioning. Two additional 5 mm port were placed in the left lower quadrant and in the left mid lateral abdomen, and another 10 mm port placed in the right lower quadrant under direct visualization after first anesthetizing the skin and fascia with 0.25% Marcaine plain. The uterus was elevated using the uterine manipulator. The sigmoid colon was noted to be adherent to the left pelvic sidewall and overlying the left infundibulopelvic ligament. The sidewall peritoneum was opened up and the sigmoid freed from these attachments using sharp dissection. Due to the overlying bowel and the large cystic left ovarian mass, the left ureter was difficult to visualize the left infundibulopelvic ligament was sealed with the LigaSure in a wide swath close to the ovary and then transected. Excellent hemostasis was visualized. The left ovarian ligament was then also sealed in a wide swath and transected with the LigaSure. Excellent hemostasis was obtained. The 10 mm port was removed from the right lower quadrant, the fascia was stretched by inserting a Luisa clamp under direct visualization, and a 15 mm port was advanced through the defect. Through this port, a large Endo-Catch bag was inserted into the abdomen and the cystic left ovary and attached distal fallopian tube were placed within the Endo-Catch bag and brought to the surface of the skin in the right lower quadrant as the port was removed. A needle attached to a 60 mL syringe was then used to aspirate cyst fluid from the contained cystic ovarian mass. A suction it service continuity supervisor was used to remove the remainder of the fluid from what appeared to be two adjacent cysts. A total of 830 mL were removed. Attention was then turned to the right ovary, which contained a simple cyst approximately 2 cm diameter. The cyst was aspirated and drained of clear fluid using the [facility] spatula. The cyst wall with some overlying ovarian stroma was then excised using the LigaSure. The distal right fallopian tube was then also excised using the LigaSure. Both the cyst wall and the distal fallopian tube were removed through a 5 mm port. Excellent hemostasis was visualized. All instruments were then removed under direct visualization. Pneumoperitoneum was allowed to escape. The fascia in the right lower quadrant was reapproximated with a figure of X suture of 0 Vicryl. Fascia was reapproximated at the umbilicus with a single interrupted suture of 0 Vicryl. The skin at all 4 port sites was closed in a subcuticular fashion with 4-0 Vicryl. LiquiBand was then placed over the incisions. The uterine manipulator and Curran catheter were removed. A speculum was again inserted into the vagina and the cervix easily visualized. The anterior lip of the cervix was grasped with a single-tooth tenaculum for traction. Uterus was sounded again, and sound length was confirmed to be 10 cm. A Mirena IUD was then inserted to a depth of 10 cm in the usual fashion, and the introducer removed. The strings were trimmed to a 3 cm length. All instruments were then removed. The patient tolerated the procedure well. Sponge, lap, and needle counts were correct x2. The patient was taken to the recovery room awake and in stable condition.
--- NOTE | 2025-02-23 11:58 | P.ANES_ITS ---
Anesthesia Charges Start Date/Time Anesthesia Start Date: 02/23/25 Anesthesia Start Time: 09:52 Stop Date/Time Anesthesia Stop Date: 02/23/25 Anesthesia Stop Time: 11:53 Coding CPT Codes CPT Codes: ANESTH SURG LOWER ABDOMEN - 87622 ([id number]) P2 - PATIENT W/MILD SYST DISEASE, QK - COLLAR TURNER OPERATOR 2-4 CNCRNT ANES PROC, QX - MASH TUB COOKER SVC W/ MD MED DIRECTION
--- NOTE | 2025-02-23 11:58 | W.ANESCHARGE ---
Anesthesia Charges Start Date/Time Anesthesia Start Date: 02/23/25 Anesthesia Start Time: 09:52 Stop Date/Time Anesthesia Stop Date: 02/23/25 Anesthesia Stop Time: 11:53 Coding CPT Codes CPT Codes: ANESTH SURG LOWER ABDOMEN - 23080 ([id number]) P2 - PATIENT W/MILD SYST DISEASE, QK - DAIRY POWDER MIXER OPERATOR 2-4 CNCRNT ANES PROC, QX - BRAND LEAD SVC W/ MD MED DIRECTION
--- NOTE | 2025-02-23 12:33 | P.ANES_ITS ---
Anesthesia Charges Start Date/Time Anesthesia Start Date: 02/23/25 Anesthesia Start Time: 09:52 Stop Date/Time Anesthesia Stop Date: 02/23/25 Anesthesia Stop Time: 11:53 Coding CPT Codes CPT Codes: ANESTH SURG LOWER ABDOMEN - 08546 ([id number]) QK - KNOCKOUT MACHINE OPERATOR 2-4 CNCRNT ANES PROC, QX - CHILD GUIDANCE COUNSELOR SVC W/ MD MED DIRECTION, P2 - PATIENT W/MILD SYST DISEASE
--- NOTE | 2025-02-23 12:33 | W.ANESCHARGE ---
Anesthesia Charges Start Date/Time Anesthesia Start Date: 02/23/25 Anesthesia Start Time: 09:52 Stop Date/Time Anesthesia Stop Date: 02/23/25 Anesthesia Stop Time: 11:53 Coding CPT Codes CPT Codes: ANESTH SURG LOWER ABDOMEN - 43155 ([id number]) QK - NETWORK PROGRAM MANAGER 2-4 CNCRNT ANES PROC, QX - BOILERMAKER'S ASSISTANT SVC W/ MD MED DIRECTION, P2 - PATIENT W/MILD SYST DISEASE
== END 2025-02-23 14:05 | disposition home or self-care (01) ==
PROVIDERS: PCP Family Medicine; Visit Provider Obstetrics & Gynecology
PROC: (CPT 58661; principal; 2025-02-23 09:00)
PROC: 0UDB8ZZ Extraction of Endometrium, Via Natural or Artificial Opening Endoscopic (ICD-10-PCS; CPT 58558; 2025-02-23 09:00)
DX: N93.8 Other specified abnormal uterine and vaginal bleeding (principal); N83.292 Other ovarian cyst, left side; N83.291 Other ovarian cyst, right side; Z30.433 Encounter for removal and reinsertion of intrauterine contraceptive device
CPT/HCPCS: 58558; 58579; 58300; 58661; 58662; 00840; 81025; 88112; C1782; J0330; J0665; J1100; J1885; J2250; J2371; J2405; J2704; J2710; J3010; J7120; J7298